=== PATIENT | male | born 1980 | race American Indian/Alaskan Native ===

== ENCOUNTER 2017-03-02 20:18 | Emergency (ER) | payer SELFPAY ==
[2017-03-02] MEDS ORDERED: cefTRIAXone 1 GM Vial IM ONE (21:23)
[2017-03-02] MEDS ORDERED: Sulfamethoxazole/Trimethoprim 800-160 MG Tab PO ONE (21:31)
--- NOTE | 2017-03-02 21:37 | EDM.PDOC ---
ED HPI GENERAL MEDICAL PROBLEM - General Chief Complaint: Skin Complaint Stated Complaint: CYST R FOREARM Time Seen by Provider: 03/02/17 21:02 Source of Information: Reports: Patient History Limitations: Reports: No Limitations - History of Present Illness INITIAL COMMENTS - FREE TEXT/NARRATIVE: 37 years old male patient presented with chief complaint of pain and redness of his right forearm. Started as small bimple, progressively getting worse. Denies any discharge. Denies any fever or chills. right arm Pain Score (Numeric/FACES): 4 - Related Data Allergies Allergy/AdvReac Type Severity Reaction Status Date / Time No Known Allergies Allergy Verified 03/02/17 21:25 Home Meds: Home Meds Clindamycin HCl [Clindamycin HCl] 300 mg PO QID 03/02/17 [History] Multivitamin [Multi-Day Vitamins] 1 tab PO DAILY 03/02/17 [History] ED ROS GENERAL - Review of Systems Review Of Systems: ROS reveals no pertinent complaints other than HPI. ED EXAM, SKIN/RASH Exam: See Below Exam Limited By: No Limitations General Appearance: Alert, WD/WN, No Apparent Distress Head: Atraumatic, Normocephalic Neck: Normal Inspection, Supple, Non-Tender, Full Range of Motion Respiratory/Chest: No Respiratory Distress, Lungs Clear, Normal Breath Sounds, No Accessory Muscle Use, Chest Non-Tender Cardiovascular: Normal Peripheral Pulses, Regular Rate, Rhythm, No Edema, No Gallop, No JVD, No Murmur, No Rub Back Exam: Normal Inspection, Full Range of Motion, NT Extremities: Normal Inspection, Normal Range of Motion, No Pedal Edema, Normal Capillary Refill, Arm Pain, Redness (Small area of erythema, tenderness. No abscess. CMS intact). No: Joint Swelling Course - Vital Signs Last Recorded V/S: Last Vital Signs Temp 36.3 C 03/02/17 20:59 Pulse 69 03/02/17 20:59 Resp 16 03/02/17 20:59 BP 115/73 03/02/17 20:59 Pulse Ox 99 03/02/17 20:59 - Orders/Labs/Meds Meds: Medications Discontinued Medications Generic Name Dose Route Start Last Admin Trade Name Freq PRN Reason Stop Dose Admin Ceftriaxone Sodium 1 gm 03/02/17 21:23 Rocephin IM 03/02/17 21:24 ONETIME ONE Trimethoprim/Sulfamethoxazole 1 tab 03/02/17 21:31 Septra Ds PO 03/02/17 21:32 ONETIME ONE - Re-Assessments/Exams Free Text/Narrative Re-Assessment/Exam: 03/02/17 21:35 Patient was seen and examined shortly after arrival. No abscess and I don't think he needs I and D's at this point. Given 1 g of IM Rocephin. One bottle of Bactrim. Refused Toradol. He wanted to take ibuprofen at home. Advised to come back if it gets worse. Patient agrees with the plan. Stable for discharge Departure - Departure Time of Disposition: 21:36 Disposition: Home, Self-Care 01 Condition: Good Clinical Impression: Cellulitis - Discharge Information Referrals: PCP,None [Primary Care Provider] - Additional Instructions: Come back if symptom worsen - Assessment/Plan Plan: Started and Bactrim and advised to come back if symptom worsen. Close follow-up with his primary doctor.
[2017-03-02] MEDS ORDERED: cefTRIAXone 1 GM, Lidocaine 1% 2.1 ML IM ONE ×2 (21:39)
== END 2017-03-02 22:15 | disposition home or self-care (01) ==
LOC: JP.ED 20:18
DX: L03.113 Cellulitis of right upper limb (principal)
CPT/HCPCS: 96372; 99283; A9270; J0696